=== PATIENT | female | born 1955 | race Caucasian/White ===

== ENCOUNTER → 2020-08-06 10:43 | Outpatient (CLI) | payer BC, SELFPAY ==
--- NOTE | 2020-08-06 10:47 | DI.RAD.S_ITS ---
PROCEDURE: XR ANKLE RT MIN 3V INDICATIONS: bilater ankle pain post fall TECHNIQUE: 3 views of the ankle were acquired. COMPARISON: None. FINDINGS: Bones: Acute oblique fracture involving distal fibular shaft is seen with minimal lateral displacement at fracture site. Ankle mortise is normally aligned. No suspicious bony lesions. Soft tissues: Soft tissue swelling over lateral malleolus is seen. No tibiotalar joint effusion. Achilles tendon appears normal. IMPRESSION: Minimally displaced oblique fracture through lateral malleolus with overlying soft tissue swelling. Dictated by: Irwin Rosario M.D. on 08/06/2020 at 11:14 Approved by: Irwin Rosario M.D. on 08/06/2020 at 11:20
--- NOTE | 2020-08-06 10:47 | DI.RAD.S_ITS ---
PROCEDURE: XR ANKLE LT MIN 3V INDICATIONS: bilateral ankle pain post fall TECHNIQUE: 3 views of the ankle were acquired. COMPARISON: None. FINDINGS: Bones: Small calcified fragment adjacent to tip of lateral malleolus is seen suggestive of age indeterminate avulsion injury. No other fracture or dislocation is seen. Ankle mortise is normally aligned. No suspicious bony lesions. Soft tissues: Lateral ankle soft tissue swelling is noted. No tibiotalar joint effusion. Achilles tendon appears normal. IMPRESSION: Age indeterminate avulsion injury involving tip of lateral malleolus with overlying soft tissue swelling. Dictated by: Irwin Rosario M.D. on 08/06/2020 at 11:09 Approved by: Irwin Rosario M.D. on 08/06/2020 at 11:14
== END ==
PROVIDERS: Referring Provider Physician Assistant; Visit Provider Physician Assistant
DX: S82.61XA Displaced fracture of lateral malleolus of right fibula, initial encounter for closed fracture (principal); S99.912A Unspecified injury of left ankle, initial encounter; M25.572 Pain in left ankle and joints of left foot; M25.571 Pain in right ankle and joints of right foot; M79.89 Other specified soft tissue disorders; X58.XXXA Exposure to other specified factors, initial encounter
CPT/HCPCS: 73610

== ENCOUNTER → 2024-05-21 14:53 | Outpatient (CLI) | payer MEDICARE, SELFPAY ==
--- NOTE | 2024-05-21 14:55 | DI.RAD.S_ITS ---
PROCEDURE: XR DEXA AXIAL SKELETON INDICATIONS: bone density COMPARISON: None. FINDINGS: Lumbar Spine: Bone mineral density 0.838 g/cm2, T score -1.6. Left Femoral Neck: Bone mineral density 0.6 a 4 g/cm2, T score -1.5. Left Hip: Bone mineral density 0.730 g/cm2, T score -1.7. Fracture Risk Calculation (when applicable): 10-year fracture risk of a major osteoporotic fracture 17 percent and of a hip fracture 1.4 percent. (T score greater or equal to -1.0 to: NORMAL) (T score from -1.1 to -2.4: OSTEOPENIA) (T score less than or equal to -2.5: OSTEOPOROSIS) IMPRESSION: Osteopenia with increased 10 year fracture risk. Follow-up guidelines as follows: Osteoporosis: Consider a repeat DEXA and Vertebral Fracture Assessment (VFA) exam in 2 years or sooner if medically necessary, to reassess this patient's status. Osteopenia: Consider a repeat DEXA in 2-3 years to reassess this patient's status, or if there is a new clinical indication. Normal: Consider a repeat DEXA in 5 years or sooner, or if there is a new clinical indication. All treatment decisions require clinical judgment and consideration of individual patient factors, including patient preferences, comorbidities, previous drug use, risk factors not captured in the FRAX model (e.g., frailty, falls, vitamin D deficiency, increased bone turnover, interval significant decline in bone density ) and possible under- or over-estimation of fracture risk by FRAX. In addition, the NOF Guide recommends that FDA-approved medical therapies be considered in postmenopausal women and men age >= 50 years with a: * Hip or vertebral (clinical or morphometric) fracture * T-score of <=-2.5 at the spine or hip * Ten-year fracture probability by FRAX of >= 3% for hip fracture or >=20% for major osteoporotic fracture. Dictated by: Irwin Rosario M.D. on 05/21/2024 at 17:21 Approved by: Irwin Rosario M.D. on 05/21/2024 at 17:28
--- NOTE | 2024-05-21 14:55 | DI.US.S_ITS ---
PROCEDURE: US THYROID INDICATIONS: THYROID NODULE TECHNIQUE: Real-time scanning was performed of the thyroid gland, with image documentation. COMPARISON: None. FINDINGS: Thyroid: Right lobe measures 4.4 x 0.9 x 0.9 cm. Left lobe measures 3.5 x 0.8 x 0.6 cm. Isthmus is 0.2 cm thick. Echotexture is heterogenous. There are no discrete thyroid nodules. IMPRESSION: Heterogenous thyroid parenchyma without discrete nodules. This is a nonspecific finding but can be seen with underlying thyroiditis. ACR TI-RADS definitions and recommendations: TI-RADS 1 (benign): 0 points. FNA not needed. TI-RADS 2 (not suspicious): 2 points. FNA not needed. TI-RADS 3: 3 points. * FNA if 2.5 cm or larger, follow up if 1.5 cm or larger (at 1, 3, and 5 years). TI-RADS 4: 4-6 points. * FNA if 1.5 cm or larger, follow up if 1 cm or larger (at 1, 2, 3, and 5 years). TI-RADS 5: 7 points or more. * FNA if 1 cm or larger, follow up if 0.5 cm or larger (every year for 5 years). Dictated by: Bdu Heredia M.D. on 05/22/2024 at 9:31 Approved by: Bud Heredia M.D. on 05/22/2024 at 9:33
== END ==
PROVIDERS: PCP Student in an Organized Health Care Education/Training Program; Referring Provider Student in an Organized Health Care Education/Training Program; Visit Provider Student in an Organized Health Care Education/Training Program
DX: M85.89 Other specified disorders of bone density and structure, multiple sites (principal); E04.1 Nontoxic single thyroid nodule
CPT/HCPCS: 76536; 77080

== ENCOUNTER 2024-08-20 13:45 | Outpatient (RCR) | payer MEDICARE, SELFPAY ==
--- NOTE | 2024-07-22 13:38 | OT.OPPOC ---
Physical, Occupational & Speech Therapy At [facility] Ladi William [id number] Visit Care Team Role Provider Type Maura Shields MD Family Provider Physician Primary Care Provider Address: [address] [place] [address], [address] Colton Gillette MD Attending Provider Physician Referring Provider Address: [address] [place] [address], [id number] Occupational Therapy Plan of Care OT Outpatient Adult Evaluation Start: 07/22/24 12:46 Freq: Status: Active Protocol: Document 07/22/24 12:46 (Rec: 07/22/24 13:20 [id number]) General Information - Adult Visit Information Visit Number 1 of 10 Plan of Care Dates 07/22/24-09/30/24 Insurance no pre-auth;no copay;KX modifier required after 19 OT Information visits pcy Session Time Visit Start Date 07/22/24 Visit Start Time 11:30 Visit Stop Time 12:20 Setting Treatment Setting Outpatient Care Visit Type Note Type Initial Evaluation Referral Referring Physician Dr Colton Gillette Reason for Referral L basal thumb arthritis Identification Identification Yes Confirmed Identification EMR Confirmed By Medical Information Medical History osteoarthritis, osteoporosis Social Information Social History It just hurts so much, I can barely do anything especially fasteners or anything pinching Patient Questionnaires Quick Dash- Upper Extremity Quick Dash UE Score 27.3 Quick Dash UE 20 to 39% Impaired (Score 20-39) Impairment Goals Objective Measurements Objective Digital Media Strategist: L- 12/25/11 Avg 11.7#, R- Avg 26.7#; Measurements Pinch: LUE tripod 4#, Carroll 2#, RUE tripod 12#, Carroll 10#, Kapandji score 6 however pain with all opposition 0-6, AROM WNL in all planes however, pain elicited in all planes as well Treatment Treatment Pt educated on anatomy and etiology of symptoms, HEP introduced with recommendations for use of thumb spica splint for 4-6 weeks, good return demo though will require more education. Short Term Goals Short Term Goals 1. Pt will be indep with return demo of HEP 2. Pt will demo pain rating of 2 or less during Kapandji opposition scoring 3. Pt will demo increased L identity management developer strength without pain limitations of 20# Account Services Manager Goals Assisted Goals 1. Pt will be indep with verbalizing and return demo of HEP and brace wear within 10 weeks 2. Pt will demonstrate increased perceived functional independence as demonstrated by improved quickDASH score of 15 or better 3. Pt will increase pain free L pinch strength of at least 10# for both lateral and tripod pinch for increased independence in ADL and IADL 4. Pt will report no more than 2 out of 5 pain during ADL and IADL tasks involving the LUE Assessment/Plan Assessment Patient Response Good Rehabilitation Good Potential Impairments ADLs,Coordination/Dexterity,Functional Activities,Pain, Identified Weakness,Range of Motion,Meaningful Activities Treatment Assessment 68 year old female referred to occupational therapy by Dr Colton Gillette due to L thumb basal arthritis. Pt presenting with pain at CMC and MP pain of L thumb. Pt reports significant pain of up to 8 out of 10 with functional activities requiring identity management developer or pinch especially fasteners, opening containers, or any movement of thumb against resistance including isometric. Per eval, pt with significant strength impairments of L identity management developer and pinch with non-functional strength on L side. Digital Media Strategist and pinch strength testing on LUE eliciting significant spike in patient's pain limiting performance. Pt reports she has used a thumb spica splint in the past with some improvement but she has not been consistent with brace wear. Pt also reporting pain at L shoulder, preliminary screen of L shoulder function consistent with signs of shoulder impingement, further testing of L shoulder function to follow in subsequent session. Pt educated on anatomy and etiology of symptoms and arthritic management, HEP introduced, brace wear reviewed. Pt demonstrates significant impairments in strength of identity management developer and pinch and related deficits in ADL and IADL performance during fine motor tasks. Pt will benefit from continued skilled OT intervention to address above deficits and increase independence with functional performance of ADL and IADL. Continue with POC Home Exercise Introduced thumb AROM, thumb opposition, thumb flexion/ Program extension/abduction with stretch as well as finger and thumb taps, Reviewed with Goals,Progress Being Made,Home Exercise Program Patient Patient Good Understanding Plan Length of treatment 10 (weeks) Plan of Care Start 07/22/24 Date Plan of Care End 09/30/24 Date Treatment Frequency Once a Week Treatment Duration 45 Minutes Therapeutic Contents Active Range of Motion,Functional Activities,Home Exercise Program,Manual Therapy,Therapeutic Activities, Therapeutic Exercises Modalities As Needed Types of Modalities Other Additional Types of Paraffin Modalities Patient Instruction Home Exercise Program,Plan of Care,Questions/Concerns Patient Continue with Current Program Recommendations Functional Wrist/Hand Scan Hand Side Sensory Assessment Sensory Profile2 Electronically Signed by: Thu Carolina OT 07/22/24 0189 If you are in agreement with this Plan of Care, please return a signed and dated copy. I have reviewed this Plan of Care and certify that the skilled therapy services above are required to meet the patient?s needs. Physician Signature Date Printed Name and Credentials Clinical Instructor Signature Printed Name and Credentials
--- NOTE | 2024-07-29 13:50 | OT.OP.TRT ---
Visit Care Team Role Provider Type Maura Shields MD Family Provider Physician Primary Care Provider Specialty: Family Practice Obstetrics Address: [address] [place] [address], [address] Email: [email or web address] Colton Gillette MD Attending Provider Physician Referring Provider Specialty: Orthopedics Orthopedic Surgery Address: [address] [place] [address], [id number] Email: [email or web address] Occupational Therapy Treatment Note OT Outpatient Treatment Note - Adult Start: 07/22/24 12:46 Freq: Status: Active Protocol: Document 07/29/24 11:30 (Rec: 07/29/24 13:49 [id number]) OT Outpatient Adult Treatment Note Session Time Visit Start Date 07/29/24 Visit Start Time 11:30 Visit Stop Time 12:15 Visit Information Visit Number 2 of 10 Plan of Care Dates 07/22/24-09/30/24 Insurance no pre-auth;no copay;KX modifier required after 19 OT Information visits pcy Setting Treatment Setting Outpatient Care Visit Type Note Type Treatment Note - Subjective Identification Type Name,Date of Identification Medical Record Reconciled With Observations Oh, this (kinesio taping to L thumb) feels so nice and supportive! - Objective Short Term Goals 1. Pt will be indep with return demo of HEP 2. Pt will demo pain rating of 2 or less during Kapandji opposition scoring 3. Pt will demo increased L compliance reviewer strength without pain limitations of 20# Fdc Goals 1. Pt will be indep with verbalizing and return demo of HEP and brace wear within 10 weeks 2. Pt will demonstrate increased perceived functional independence as demonstrated by improved quickDASH score of 15 or better 3. Pt will increase pain free L pinch strength of at least 10# for both lateral and tripod pinch for increased independence in ADL and IADL 4. Pt will report no more than 2 out of 5 pain during ADL and IADL tasks involving the LUE - Treatment 1 Descriptor Pt reports wearing thumb spica splint x1 occasion, pt educated on importance and purpose of bracing. Pt independently reviewed 1 rep of all HEP exercises with good return demo and no need for cues. HEP progressed to include manual release of web space as well as distraction of CMC joint with good return demo. Kinesio tape applied to thumb for support of CMC with education on function/purpose and application/care of kinesio-taping. Pt verbalized good understanding and was pleased with the support provided. Pt educated on using k-tape as supplement to bracing, not a replacement and to continue wearing brace as much as she can tolerate unless completing HEP. Pt verbalized understanding - Assessment Patient Response to Good Treatment Rehabilitation Good Potential Assessment of Pt reports good compliance and indep with HEP though Improvement reporting poor compliance with bracing with thumb spica splint. Pt educated on use of k-tape for improved practicality/functional use of hand while providing some additional support as well as function and purpose of k-tape. Pt reported immediate benefit and improved comfort of CMC joint following application of k-tape. Pt educated on use/maintenance and wear of k-tape as well as how to reapply if needed prior to next visit. Pt verbalized good understanding. HEP progressed to include manual release of web space and distraction of CMC joint to widen webspace and provide pain relief with good return demo. Pt will benefit from continued skilled OT to progress function and reduce pain of L thumb. Continue with POC Home Exercise progressed, added manual web space release and Program distraction of CMC - Plan Amount of Therapy 2-3 Months Recommended Frequency of Once a Week Treatment Length of Session 45 Minutes
--- NOTE | 2024-08-05 13:01 | OT.OP.TRT ---
Visit Care Team Role Provider Type Maura Shields MD Family Provider Physician Primary Care Provider Specialty: Family Practice Obstetrics Address: [address] [place] [address], [id number] Email: [email or web address] Colton Gillette MD Attending Provider Physician Referring Provider Specialty: Orthopedics Orthopedic Surgery Address: [address] [place] [address], [address] Email: [email or web address] Occupational Therapy Treatment Note OT Outpatient Treatment Note - Adult Start: 07/22/24 12:46 Freq: Status: Active Protocol: Document 08/05/24 12:45 (Rec: 08/05/24 13:01 [id number]) OT Outpatient Adult Treatment Note Session Time Visit Start Date 08/05/24 Visit Start Time 11:30 Visit Stop Time 12:15 Visit Information Visit Number 3 of 10 Plan of Care Dates 07/22/24-09/30/24 Insurance no pre-auth;no copay;KX modifier required after 19 OT Information visits pcy Setting Treatment Setting Outpatient Care Visit Type Note Type Treatment Note - Subjective Identification Type Name,Date of Identification Medical Record Reconciled With Observations The splint at night seems to make it hurt more, it feels better to move it - Objective Short Term Goals 1. Pt will be indep with return demo of HEP 2. Pt will demo pain rating of 2 or less during Kapandji opposition scoring 3. Pt will demo increased L chemicals distiller strength without pain limitations of 20# Jinrikisha Driver Goals 1. Pt will be indep with verbalizing and return demo of HEP and brace wear within 10 weeks 2. Pt will demonstrate increased perceived functional independence as demonstrated by improved quickDASH score of 15 or better 3. Pt will increase pain free L pinch strength of at least 10# for both lateral and tripod pinch for increased independence in ADL and IADL 4. Pt will report no more than 2 out of 5 pain during ADL and IADL tasks involving the LUE - Treatment 1 Descriptor Pt reports wearing thumb spica splint seems to increase pain/discomfort and feel better as she uses it more, pt advised to avoid painful activity or range and if the brace worsens symptoms, it is not necessary but may provide support during specific activities that commonly exacerbate symptoms and can be worn to reduce this. HEP reviewed, including stretching of web space/ CMC joint distraction as well as exercises to include isometric thumb abduction/extension (talking puppet) and isometric thumb extension with good return demo. Pt advised to continue with stretches and isometric exercises with education on monitoring for worsening of symptoms and to discontinue resistance if painful. Pt completed good return demo of all exercises and teaching, verbalized understanding - Assessment Patient Response to Good Treatment Rehabilitation Good Potential Assessment of Pt reports good compliance and indep with HEP though Improvement continues to report poor compliance with thumb spica splint citing worsening pain/discomfort. Pt reported benefit of k-tape though did not feel as though she wanted to continue to utilize it. Pt educated on symptom etiology, currently appears as though arthritis is primary etiology, no current indication of De Quervain's tenosynovitis, treatment focusing on education and intervention for arthritis of CMC joint. Pt verbalized good understanding. HEP progressed with good return demo. Pt will benefit from continued skilled OT to progress function and reduce pain of L thumb. Continue with POC Home Exercise progressed, added web space stretching and reviewed Program distraction of CMC, progressed exercise to isometric thumb abd/ext and isometric thumb ext - Plan Amount of Therapy 2-3 Months Recommended Frequency of Once a Week Treatment Length of Session 45 Minutes
--- NOTE | 2024-08-12 13:01 | OT.OP.TRT ---
Visit Care Team Role Provider Type Maura Shields MD Family Provider Physician Primary Care Provider Specialty: Family Practice Obstetrics Address: [facility] [place], [address] Email: [email or web address] Colton Gillette MD Attending Provider Physician Referring Provider Specialty: Orthopedics Orthopedic Surgery Address: [address] [place] [address], [address] Email: [email or web address] Therapy Treatment Note OT Outpatient Treatment Note - Adult Start: 07/22/24 12:46 Freq: Status: Active Protocol: Document 08/12/24 12:48 (Rec: 08/12/24 13:00 [id number]) OT Outpatient Adult Treatment Note Session Time Visit Start Date 08/12/24 Visit Start Time 11:30 Visit Stop Time 12:15 Visit Information Visit Number 4 of 10 Plan of Care Dates 07/22/24-09/30/24 Insurance no pre-auth;no copay;KX modifier required after 19 OT Information visits pcy Setting Treatment Setting Outpatient Care Visit Type Note Type Treatment Note - Subjective Identification Type Name,Date of Identification Medical Record Reconciled With Observations One day I even woke up with no pain but after not using it, I can tell when I use it more it can hurt more if I push too hard - Objective Short Term Goals 1. Pt will be indep with return demo of HEP 2. Pt will demo pain rating of 2 or less during Kapandji opposition scoring 3. Pt will demo increased L ocular care technologist strength without pain limitations of 20# Account Contact Associate Goals 1. Pt will be indep with verbalizing and return demo of HEP and brace wear within 10 weeks 2. Pt will demonstrate increased perceived functional independence as demonstrated by improved quickDASH score of 15 or better 3. Pt will increase pain free L pinch strength of at least 10# for both lateral and tripod pinch for increased independence in ADL and IADL 4. Pt will report no more than 2 out of 5 pain during ADL and IADL tasks involving the LUE - Treatment 1 Descriptor Paraffin applied to L hand simultaneously to pt reviewing goals and functional tasks she finds limited by pain of L thumb. Pt stated opening containers, buttons, zippers, doing her nails and using her phone as primary exacerbating activities. Pt was shown and provided list of adaptive devices and accommodations available to minimize overuse and pain while doing these activities including button hooks, zipper pulls, modified techniques for tasks related to doing her nails to reduce ocular care technologist/pinching mechanics as well as a phone stand for improved ergonomics of bilateral hands and offloading weight from thumbs. Pt eager to acquire items and educated on purpose of modification/ adaptations to reduce overuse and to avoid activities that cause pain or exacerbate symptoms. Attempted theraband flexbar exercises for strengthening , however all attempted uses exacerbated pain and were deferred, reviewed AROM of thumb with good return demo, pt reporting positive response to heat with decreased discomfort - Assessment Patient Response to Good Treatment Rehabilitation Good Potential Assessment of Patient continues to present with activity limitations Improvement due to pain and inflammation associated with arthritis, particularly in the left thumb. While she demonstrates fair understanding of education provided across sessions, she requires ongoing skilled instruction to reinforce the importance of activity modification strategies and the rationale for differential approaches during symptom exacerbation versus periods of stability. Patient is beginning to demonstrate insight into how modifications and adaptive tools can reduce mechanical stress and support long-term joint protection. During today?s session, paraffin therapy was applied to the left hand while reviewing goals and pain-limited functional tasks. Patient identified costa exacerbating activities including opening containers, managing fasteners (buttons/zippers), self-grooming (doing nails ), and prolonged phone use. Adaptive equipment options and modified techniques were reviewed in detail, and patient was provided with a resource list to support acquisition of recommended tools (e.g., button hook, zipper pull, ergonomic phone stand). She demonstrated eagerness to implement these strategies and was educated on the role of such adaptations in reducing overuse and flare-ups. Patient will benefit from continued skilled occupational therapy to support pain-free engagement in ADLs and IADLs through arthritis management, joint protection techniques, and the introduction of adaptive tools. Ongoing intervention is needed to improve understanding of diagnosis management, reduce symptom frequency, and enhance functional participation through education, environmental modification, and therapeutic strengthening outside of flare periods. - Plan Amount of Therapy 2-3 Months Recommended Frequency of Once a Week Treatment Length of Session 45 Minutes
--- NOTE | 2024-08-21 10:38 | OT.OP.TRT ---
Visit Care Team Role Provider Type Maura Shields MD Family Provider Physician Primary Care Provider Specialty: Family Practice Obstetrics Address: [facility] [place], [address] Email: [email or web address] Colton Gillette MD Attending Provider Physician Referring Provider Specialty: Orthopedics Orthopedic Surgery Address: [address] [place] [address], [id number] Email: [email or web address] Treatment Note OT Outpatient Treatment Note - Adult Start: 07/22/24 12:46 Freq: Status: Active Protocol: Document 08/20/24 14:00 (Rec: 08/21/24 10:36 [id number]) OT Outpatient Adult Treatment Note Session Time Visit Start Date 08/21/24 Visit Start Time 14:00 Visit Stop Time 14:45 Visit Information Visit Number 5 of 10 Plan of Care Dates 07/22/24-09/30/24 Insurance no pre-auth;no copay;KX modifier required after 19 OT Information visits pcy Setting Treatment Setting Outpatient Care Visit Type Note Type Treatment Note - Subjective Identification Type Name,Date of Identification Medical Record Reconciled With Observations I got my biopsy back and have Basal Cell Carcinoma, I have my first radiology appt next Sunday and may need to cancel some visits until I know more. Patient/Caregiver Good Compliance with Home Exercise Program - Objective Short Term Goals 1. Pt will be indep with return demo of HEP 2. Pt will demo pain rating of 2 or less during Kapandji opposition scoring 3. Pt will demo increased L kick press setter strength without pain limitations of 20# Appliquer Zigzag Goals 1. Pt will be indep with verbalizing and return demo of HEP and brace wear within 10 weeks 2. Pt will demonstrate increased perceived functional independence as demonstrated by improved quickDASH score of 15 or better 3. Pt will increase pain free L pinch strength of at least 10# for both lateral and tripod pinch for increased independence in ADL and IADL 4. Pt will report no more than 2 out of 5 pain during ADL and IADL tasks involving the LUE - Treatment 1 Descriptor During today?s session, patient had difficulty focusing due to emotional processing of the recent diagnosis and anticipated treatment course. Paraffin was applied to the left hand during discussion of functional progress and adaptive strategies. Patient reported near -complete resolution of thumb pain over the past week and was able to independently button her jacket prior to today?s appointment?an activity that previously provoked discomfort. She noted satisfaction with progress but questioned whether symptom relief was partially related to her current focus being consumed by the new cancer diagnosis. Following paraffin treatment, patient demonstrated full hand and finger AROM without pain or limitation. Due to symptom improvement, she had not pursued adaptive devices previously discussed (e.g., button hook, jar division toll wire chief). Therapist provided brief re-education on joint protection strategies and encouraged use of adaptive tools when appropriate to prevent recurrence of strain. - Assessment Patient Response to Good Treatment Rehabilitation Good Potential Assessment of Patient reports recent biopsy results confirming basal Improvement cell carcinoma on the left lower eyelid. She was informed that radiation treatment may be required daily for approximately 20 sessions, pending confirmation at her initial radiology consult scheduled for Sunday. Patient stated she will follow up with OT regarding scheduling once her treatment plan is finalized and anticipates possible cancellation of upcoming sessions depending on the frequency and timing of treatments. Patient presents with significant reduction in L thumb CMC joint pain and improved functional use of the hand, as evidenced by independent completion of fine motor tasks (e.g., buttoning jacket) and full pain-free AROM following paraffin treatment. Symptom resolution has contributed to decreased follow-through with adaptive equipment trialing; however, patient demonstrates good insight and responsiveness to joint protection education. Emotional processing of recent basal cell carcinoma diagnosis may be impacting focus and consistency with home program. Patient is highly motivated and pleased with progress but may experience interruptions in OT frequency pending upcoming radiation treatment plan. However, pt will continue to benefit from skilled OT to ensure carry over of progress and education provided as well as ongoing adaptive strategies and home modifications for joint protection. - Plan Therapy Continue with Current Program Recommendations Amount of Therapy 2-3 Months Recommended Frequency of Once a Week Treatment Length of Session 45 Minutes
--- NOTE | 2024-09-05 08:43 | OT.OP.DC ---
Visit Care Team Role Provider Type Maura Shields MD Family Provider Physician Primary Care Provider Address: [address] [place] [address], [id number] Email: [email or web address] Colton Gillette MD Attending Provider Physician Referring Provider Address: [address] [place] [address], [address] Email: [email or web address] Outpatient Adult Evaluation Start: 07/22/24 12:46 Freq: Status: Active Protocol: Document 07/22/24 12:46 (Rec: 07/22/24 13:20 [id number]) General Information - Adult Visit Information Visit Number 1 of 10 Plan of Care Dates 07/22/24-09/30/24 Insurance no pre-auth;no copay;KX modifier required after 19 OT Information visits pcy Session Time Visit Start Date 07/22/24 Visit Start Time 11:30 Visit Stop Time 12:20 Setting Treatment Setting Outpatient Care Visit Type Note Type Initial Evaluation Referral Referring Physician Dr Colton Gillette Reason for Referral L basal thumb arthritis Identification Identification Yes Confirmed Identification EMR Confirmed By Medical Information Medical History osteoarthritis, osteoporosis Social Information Social History It just hurts so much, I can barely do anything especially fasteners or anything pinching Patient Questionnaires Quick Dash- Upper Extremity Quick Dash UE Score 27.3 Quick Dash UE 20 to 39% Impaired (Score 20-39) Impairment Goals Objective Measurements Objective Telephone Instrument Supervisor: L- 12/25/11 Avg 11.7#, R- Avg 26.7#; Measurements Pinch: LUE tripod 4#, Carroll 2#, RUE tripod 12#, Carroll 10#, Kapandji score 6 however pain with all opposition 0-6, AROM WNL in all planes however, pain elicited in all planes as well Treatment Treatment Pt educated on anatomy and etiology of symptoms, HEP introduced with recommendations for use of thumb spica splint for 4-6 weeks, good return demo though will require more education. Short Term Goals Short Term Goals 1. Pt will be indep with return demo of HEP 2. Pt will demo pain rating of 2 or less during Kapandji opposition scoring 3. Pt will demo increased L carbon sequestration plant engineer strength without pain limitations of 20# Assessment Services Manager Goals Assessment Services Manager Goals 1. Pt will be indep with verbalizing and return demo of HEP and brace wear within 10 weeks 2. Pt will demonstrate increased perceived functional independence as demonstrated by improved quickDASH score of 15 or better 3. Pt will increase pain free L pinch strength of at least 10# for both lateral and tripod pinch for increased independence in ADL and IADL 4. Pt will report no more than 2 out of 5 pain during ADL and IADL tasks involving the LUE Assessment/Plan Assessment Patient Response Good Rehabilitation Good Potential Impairments ADLs,Coordination/Dexterity,Functional Activities,Pain, Identified Weakness,Range of Motion,Meaningful Activities Treatment Assessment 68 year old female referred to occupational therapy by Dr Colton Gilletet due to L thumb basal arthritis. Pt presenting with pain at CMC and MP pain of L thumb. Pt reports significant pain of up to 8 out of 10 with functional activities requiring carbon sequestration plant engineer or pinch especially fasteners, opening containers, or any movement of thumb against resistance including isometric. Per eval, pt with significant strength impairments of L carbon sequestration plant engineer and pinch with non-functional strength on L side. Telephone Instrument Supervisor and pinch strength testing on LUE eliciting significant spike in patient's pain limiting performance. Pt reports she has used a thumb spica splint in the past with some improvement but she has not been consistent with brace wear. Pt also reporting pain at L shoulder, preliminary screen of L shoulder function consistent with signs of shoulder impingement, further testing of L shoulder function to follow in subsequent session. Pt educated on anatomy and etiology of symptoms and arthritic management, HEP introduced, brace wear reviewed. Pt demonstrates significant impairments in strength of carbon sequestration plant engineer and pinch and related deficits in ADL and IADL performance during fine motor tasks. Pt will benefit from continued skilled OT intervention to address above deficits and increase independence with functional performance of ADL and IADL. Continue with POC Home Exercise Introduced thumb AROM, thumb opposition, thumb flexion/ Program extension/abduction with stretch as well as finger and thumb taps, Reviewed with Goals,Progress Being Made,Home Exercise Program Patient Patient Good Understanding Plan Length of treatment 10 (weeks) Plan of Care Start 07/22/24 Date Plan of Care End 09/30/24 Date Treatment Frequency Once a Week Treatment Duration 45 Minutes Therapeutic Contents Active Range of Motion,Functional Activities,Home Exercise Program,Manual Therapy,Therapeutic Activities, Therapeutic Exercises Modalities As Needed Types of Modalities Other Additional Types of Paraffin Modalities Patient Instruction Home Exercise Program,Plan of Care,Questions/Concerns Patient Continue with Current Program Recommendations Functional Wrist/Hand Scan Hand Side Sensory Assessment Sensory Profile2 OT Outpatient Treatment Note - Adult Start: 07/22/24 12:46 Freq: Status: Active Protocol: Document 09/05/24 08:32 (Rec: 09/05/24 08:42 [id number]) OT Outpatient Adult Treatment Note Visit Information Plan of Care Dates 07/22/24-09/30/24 Insurance no pre-auth;no copay;KX modifier required after 19 OT Information visits pcy Setting Treatment Setting Outpatient Care Visit Type Note Type Discharge Summary General Information General Information Pt was making good progress with treatment with significant improvements in pain free completion of ADL and IADL tasks per report. Pt requesting discharge from OT services due to new cancer diagnosis requiring frequent treatments that will take priority at this time. She was happy with progress and verbalized understanding that new referral could be placed at conclusion of her cancer interventions if she would like to resume therapy. Goal progress was not formally assessed prior to d/c however, pt reported significant subjective improvement in symptoms and functional independence with good understanding of education provided. - - Objective Short Term Goals 1. Pt will be indep with return demo of HEP [NOT MET ] 2. Pt will demo pain rating of 2 or less during Kapandji opposition scoring [NOT MET 09/04/24] 3. Pt will demo increased L carbon sequestration plant engineer strength without pain limitations of 20# [NOT MET 09/04/24] Assessment Services Manager Goals 1. Pt will be indep with verbalizing and return demo of HEP and brace wear within 10 weeks [NOT MET 09/04/24] 2. Pt will demonstrate increased perceived functional independence as demonstrated by improved quickDASH score of 15 or better. [NOT MET 09/04/24] 3. Pt will increase pain free L pinch strength of at least 10# for both lateral and tripod pinch for increased independence in ADL and IADL. [NOT MET ] 4. Pt will report no more than 2 out of 5 pain during ADL and IADL tasks involving the LUE [NOT MET 09/04/24] - - Assessment Patient Response to Good Treatment Rehabilitation Good Potential - Plan Therapy Discharge from Occupational Therapy Recommendations Amount of Therapy No Further Therapy Recommended Frequency of No Further Therapy Treatment
== END 2024-09-08 14:46 | disposition home or self-care (01) ==
LOC: OT 13:45
PROVIDERS: Family Provider Student in an Organized Health Care Education/Training Program; PCP Student in an Organized Health Care Education/Training Program; Referring Provider Orthopaedic Surgery; Visit Provider Orthopaedic Surgery
DX: M18.12 Unilateral primary osteoarthritis of first carpometacarpal joint, left hand (principal)
CPT/HCPCS: 97110; 97165; 97530